=== PATIENT | male | born 1970 | race Caucasian/White ===

== ENCOUNTER → 2017-04-21 | Outpatient (CLI) | payer OTHER ==
[~2017-04-21] MED LIST: ATV/1 PO; CEPH500C2 PO; CHOL1000 PO; CLR10 PO; CYM/30 PO; DICY10CA55 PO; FERR18TA2 PO; FOLI1TAB8 PO; GABA-113 PO; GABA600T PO; LCTL45 PO; OXYC1TAB PO; PANT40TA PO; PRAM0.129 PO; SUCR5SUS PO; TEMA30CA4 PO
--- NOTE | 2017-04-23 07:16 | CODING QUERY NO DIAGNOSIS ---
TREATMENT RENDERED WITHOUT A DIAGNOSIS To promote full compliance with coding requirements relating to patient care, physician participation is requested in all cases of braille coder uncertainty. Please assist us with providing a diagnosis/symptom for the test(s) below: A diagnosis/symptom was not documented on your Order. A valid diagnosis/symptom is required to bill all insurances. Please remember that we are unable to code a diagnosis of rule out, probable, possible, questionable, or suspected. Tests that require a diagnosis: DOS 04/21 * AERO/ANAE Culture & GS DIAGNOSIS: Provider Signature: Date: Thank you Emily Escamilla Health Information Management Once completed, please kindly fax back to [phone] For questions please call [phone]
== END | disposition home or self-care (01) ==
LOC: C.LABSPEC 17:28
PROVIDERS: ATTEND Orthopaedic Surgery
DX: L03.113 Cellulitis of right upper limb (principal)

== ENCOUNTER 2017-04-22 15:50 | Inpatient (IN) | payer OTHER ==
[~2017-04-22] VITALS: Ht 170.2 cm; Wt 101.4 kg
[2017-04-22 16:30] VITALS: BP 144/85; PULSE 79; TEMP 37.2; O2SAT 99; Ht 170.2 cm; Wt 101.4 kg
[2017-04-22] MEDS ORDERED: PRAM0.129 PO (17:20)
[2017-04-22] MEDS ORDERED: SUCR5SUS PO (17:20)
--- NOTE | 2017-04-22 17:20 | History and Physical ---
History & Physical Date Apr 22, 2017. Chief Complaint right elbow erythema History of Present Illness The patient is a 47 year old male with complaints of right elbow increased pain and erythema. Patient had right elbow cubital tunnel release on 04/07/17 and came to office this past wednesday with complaints of elbow incision "popping" open that am. He had I &D wound dehiscence on 04/21/17 and presented to office today with increased pain and erythema Past Medical/Surgical History GERD Alcoholism, history of Anemia Arthritis Depression Hypoglycemia Migraines Obesity Oral cancer seizure disorder sleep apnea spinal stenosis Jaw surgery Right shoulder arthroscopy Gastric bypass Partial liver removed Cholecystectomy right Achilles Repair CTR Cubital tunnel release Allergies Coded Allergies: Penicillins (Verified Allergy, Mild, skin rash as child, 04/22/17) Amitriptyline (Verified Allergy, "medicine induced blackout", 04/22/17) Lyrica (Verified Allergy, loss of balance, dizzy, light headed, 04/22/17) Nitroglycerin (Verified Allergy, "stops heart", 04/22/17) Wellbutrin (Verified Allergy, hallucinations, 04/22/17) Zonegran (Verified Allergy, hallucinations, 04/22/17) Physical Examination Respiratory/Chest: lungs clear Cardiovascular: regular rate, rhythm Extremities: + pertinent finding (right elbow erythema and closed incision with sligher serous drainage) Diagnosis Right elbow cellulitis s/p right elbow cubital tunnel release and CTR s/p right elbow I & D wound dehiscence on 04/21/17 Plan of Treatment Patient admitted to [facility] today for IV abx. Cultures were taken yesterday in the OR and are pending. Consult Medicine and ID.
[2017-04-22] MEDS ORDERED: CYM/30 PO ×2 (17:22→17:38)
[2017-04-22] MEDS ORDERED: CLR10 PO (17:23)
[2017-04-22] MEDS ORDERED: PANT40TA PO ×2 (17:23→17:37)
[2017-04-22] MEDS ORDERED: GABA-113 PO ×2 (17:24→18:03)
[2017-04-22] MEDS ORDERED: ATV/1 PO ×2 (17:25→18:04)
[2017-04-22] MEDS ORDERED: OXYC1TAB PO (17:26)
[2017-04-22] MEDS ORDERED: TEMA30CA4 PO (17:26)
[2017-04-22] MEDS ORDERED: DICY10CA55 PO (17:26)
[2017-04-22] MEDS ORDERED: FOLI1TAB8 PO (17:27)
[2017-04-22] MEDS ORDERED: FERR18TA2 PO (17:28)
[2017-04-22] MEDS ORDERED: CHOL1000 PO (17:29)
[2017-04-22] MEDS: OXYCODONE HCL IR 5 MG TAB (IMMEDIATE RELEASE) PO SCH (18:10)
[2017-04-22] MEDS ORDERED: PIPERACILL/TAZOBAC IV 3.375 GM in DEXTROSE 5% 100ML IV ONE (18:15)
[2017-04-22] MEDS ORDERED: PIPERACILL/TAZOBAC CONSULT ACTIVE PRN (18:15)
[2017-04-22 19:12] LABS: CREATININE 0.82 mg/dl (0.60-1.40)
[2017-04-22] MEDS ORDERED: LORAZEPAM 1 MG TAB PO PRN (19:45)
[2017-04-22] MEDS ORDERED: ONDANSETRON INJ 2 MG/ML 2 ML VIAL IV PRN (19:45)
[2017-04-22] MEDS ORDERED: VANCOMYCIN CONSULT ACTIVE PRN (19:45)
[2017-04-22] MEDS ORDERED: VANCOMYCIN INJ 2,250 MG in SODIUM CHLORIDE 0.9% 500ML 500 ML IV ONE (20:15)
[2017-04-22] MEDS: HYDROmorphone INJ 1 MG/ML SYR IV PRN (20:49)
[2017-04-22] MEDS: PANTOprazole SOD 40 MG TAB PO SCH (20:50)
[2017-04-22] MEDS: GABAPENTIN 300 MG CAP PO SCH (20:50)
[2017-04-22] MEDS: DULOXETINE HCL 60 MG CAP PO SCH (20:50)
[2017-04-22] MEDS: TEMAZEPAM 15 MG CAP PO SCH (20:51)
--- NOTE | 2017-04-22 21:10 | Pharmacy Progress Note ---
Pharmacy Antibiotic Consult Date of Service: Apr 22, 2017. Pharmacy Dosing Scope Pharmacy is consulted to initiate vancomycin/zosyn IV dosing therapy, order appropriate labs and adjust drug dose/frequency. Subjective The patient is a 47 year old male admitted on Apr 22, 2017 at 16:20. Objective Height (Feet): 5 Height (Inches): 7.00 Weight (Kilograms): 96.360 Lab Results (24hrs): Test 04/22/17 18:27 Creatinine 0.82 mg/dl (0.60-1.40) Est Creatinine Clear Calc Drug Dose 120.6 ml/min Estimated GFR () 120.3 Estimated GFR (Non- 103.8 Assessment & Plan Assessment: * 47 yo male w/ increased right elbow pain and erythema * Right elbow cubital tunnel release on 04/07/17 and then I&D wound dehiscence on 04/21/17 * Consulted to start IV vanco/zosyn Plan: Loading dose: 2250 mg (23mg/kg) IV X 1 dose then: 1250 mg (13mg/kg) mg IV every 10 hours. * population pk: SCr 0.82, CrCl age maximum 106 ml/min, Ke 0.09, T1/2 ~7.5 hrs Goal trough level estimate: between 10-20 mcg/mL. Trough level ordered for 04/24 @ 0930 Pharmacy will continue to follow and will adjust dose/frequency as necessary. Thank you
[2017-04-22 22:58] VITALS: BP 150/92; PULSE 76; TEMP 37.6; O2SAT 99
--- NOTE | 2017-04-22 23:11 | Medical Consult ---
Consultation Date of Consultation: Apr 22, 2017. Attending Physician: José Miguel Pedroza MD Reason for Consultation: Cellulitis History of Present Illness The patient is a 47 year old male with complaints of right elbow increased pain and erythema. Patient had right elbow cubital tunnel release on 04/07/17. He was doing well until he was getting out of bed on 04/19 when he felt his wound "pop." There was some purulent drainage and he presented to the office for evaluation. On 04/21/17 he underwent an I&D of the right elbow and the wound was closed, no drain placed. This AM he had intense pain, fever/chills and his elbow was significantly swollen, twice the size it had been before. He was directly admitted by orthopedics and given Zosyn, we are consulted for medical management. Per the patient and his family member, the erythema surrounding the right elbow has increased significantly since just this evening. The swelling is rapidly increasing and the elbow is exquisitely tender. The oxycodone that he was prescribed are not touching the pain. He has not slept well in days. His appetite is poor. He had some nausea and vomiting earlier this evening. H/o alcohol abuse, he was sober for 3 years until March 2017 when he relapsed , but he has not had a drink in several weeks now. His other chronic issues are stable. Past Medical/Surgical History Past Medical/Surgical History GERD Alcoholism, history of Anemia Arthritis Depression Hypoglycemia Migraines Obesity Oral cancer seizure disorder sleep apnea spinal stenosis Jaw surgery Right shoulder arthroscopy Gastric bypass Partial liver removed Cholecystectomy right Achilles Repair CTR Cubital tunnel release Family History Alcoholism CAD Social History Smoking Status: Current Every Day Smoker Allergies Coded Allergies: Bupropion (Verified Allergy, Unknown, hallucinations, 04/22/17) Pregabalin (Verified Allergy, Unknown, loss of balance, dizzy, light headed, 04/22/17) Zonisamide (Verified Allergy, Unknown, hallucinations, 04/22/17) Adhesives (Unverified Adverse Reaction, Unknown, RASH, 04/22/17) all transdermal patches Amitriptyline (Unverified Adverse Reaction, Unknown, DELIRIUM, 04/22/17) medicine induced blackout Aspirin (Unverified Adverse Reaction, Unknown, GI SYMPTOMS, 04/22/17) gastric bypass patient NSAIDs (Unverified Adverse Reaction, Unknown, GI SYMPTOMS, 04/22/17) gastric bypass patient Nitroglycerin (Unverified Adverse Reaction, Unknown, SHORTNESS OF BREATH, 04/22/17) stops heart Penicillins (Unverified Adverse Reaction, Unknown, GI SYMPTOMS, 04/22/17) pt was told since not to use Home Medications Cymbalta Vitamin D Folic acid Restoril Ativan Mirapex Neurontin Oxycodone 30mg QID Protonix 40mg BID Iron supplement Current Inpatient Medications Current Inpatient Medications Medications (Trade) Dose Ordered Sig/Re Route Start Time Stop Time Status Last Admin Dose Admin Oxycodone HCl (Roxicodone Immediate Rel Tab) 20 mg Q6H PO 04/22/17 18:00 05/06/17 17:59 04/22/17 18:10 20 MG Piperacillin Sod/ Tazobactam Sod 3.375 gm/Dextrose 115 ml @ 28.75 mls/ hr Q8H IV 04/23/17 00:00 05/03/17 00:00 Miscellaneous Information (Consult) 1 ea UD PRN N/A 04/22/17 18:15 05/22/17 18:14 Duloxetine HCl (Cymbalta Cap) 60 mg BID PO 04/22/17 21:00 05/22/17 20:59 04/22/17 20:50 60 MG Folic Acid (Folvite Tab) 1 mg DAILY PO 04/23/17 09:00 05/23/17 08:59 Gabapentin (Neurontin Cap) 600 mg BID PO 04/22/17 21:00 05/22/17 20:59 04/22/17 20:50 600 MG Loratadine (Claritin Tab) 10 mg DAILY PO 04/23/17 09:00 05/23/17 08:59 Lorazepam (Ativan Tab) 1 mg DAILY PRN PO 04/22/17 19:45 05/22/17 19:44 Pantoprazole Sodium (Protonix Tab) 40 mg BID PO 04/22/17 21:00 05/22/17 20:59 04/22/17 20:50 40 MG Pramipexole Dihydrochloride (miraPEX TAB) 0.5 mg DAILY PO 04/23/17 09:00 05/23/17 08:59 Temazepam (Restoril Cap) 30 mg HS PO 04/22/17 21:00 05/22/17 20:59 04/22/17 20:51 30 MG Hydromorphone HCl (Dilaudid Inj) 1 mg Q4H PRN IV 04/22/17 19:45 05/06/17 19:44 04/22/17 20:49 1 MG Ondansetron HCl (Zofran Inj) 4 mg Q4H PRN IV 04/22/17 19:45 05/22/17 19:44 Vancomycin HCl 1250 mg/Sodium Chloride 275 ml @ 125 mls/hr Q10H IV 04/23/17 05:00 05/03/17 04:59 Miscellaneous Information (Consult) 1 ea UD PRN N/A 04/22/17 19:45 05/22/17 19:44 Vancomycin HCl 2250 mg/Sodium Chloride 545 ml @ 200 mls/hr NOW ONCE IV 04/22/17 20:15 04/22/17 22:58 04/22/17 20:49 200 MLS/HR Review of Systems Constitutional: + fever, + chills, No weight loss, No weakness, No fatigue Eyes: No worsening of vision, No eye pain, No redness, No discharge, No diplopia, No problem reported ENT: No hearing loss, No unusual epistaxis, No nasal symptoms, No sore throat, No tinnitus, No dental problems, No trouble swallowing, No problem reported Respiratory: No cough, No sputum, No wheezing, No shortness of breath, No dyspnea on exertion, No dyspnea at rest, No hemoptysis, No problem reported Cardiovascular: No chest pain, No orthopnea, No PND, No edema, No claudication , No palpitations, No problem reported Abdomen: No pain, No nausea, No vomiting, No diarrhea, No constipation, No GI bleeding, No problem reported Musculoskeletal: + joint pain (right elbow), + swelling (right elbow), No muscle pain, No calf pain Genitourinary - Male: No hematuria, No dysuria, No urinary frequency, No urinary urgency Neurologic: No memory loss, No paralysis, No weakness, No numbness/tingling, No vertigo, No balance problems, No problem reported Psychiatric: + anxiety, + insomnia, + substance abuse (h/o alcohol abuse, last drink one month ago), No depression symptoms, No anhedonism Endocrine: No fatigue, No excessive thirst, No excessive urination, No problem reported Hematologic / Lymphatic: No abnormal bleeding/bruising, No clotting problems, No swollen lymph nodes, No night sweats, No problem reported Integumentary: + color change (erythema around right elbow extending both proximally and distally several centimeters), No rash, No itch, No new/changing skin lesions, No bleeding, No problem reported Allergic / Immunologic: No environmental allergies, No seasonal allergies, No pet sensitivities, No food allergies, No hives, No frequent infections, No poor healing, No prolonged convalescence, No problem reported Physical Exam Date Time Temp Pulse Resp B/P (MAP) Pulse Ox O2 Delivery O2 Flow Rate FiO2 04/22/17 16:30 37.2 79 15 144/85 99 Room Air General Appearance: WD/WN, no apparent distress Head: normocephalic, atraumatic Eyes: normal inspection, EOMI, sclerae normal ENT: normal ENT inspection, hearing grossly normal, pharynx normal Neck: supple, no adenopathy, no JVD Respiratory/Chest: chest non-tender, lungs clear, normal breath sounds, no respiratory distress, no accessory muscle use Cardiovascular: regular rate, rhythm, no edema, no gallop, no JVD, no murmur, normal peripheral pulses Abdomen/GI: normal bowel sounds, non tender, soft, no organomegaly Back: normal inspection, no CVA tenderness, no muscle spasm, normal range of motion Extremities/Musculoskelatal: normal capillary refill, no pedal edema, pelvis stable, + inflammation (right elbow), + swelling (right elbow, significant, impeding full flexion, tender to palpation) Neurologic/Psych: leaf tier II-XII nml as tested, no motor/sensory deficits, alert, normal mood/affect, normal reflexes, oriented x 3 Skin: + pertinent finding (right elbow erythema) Lymphatic: no adenopathy Laboratory Results Last 24 Hours Test 04/22/17 18:27 Creatinine 0.82 mg/dl Est Creatinine Clear Calc Drug Dose 120.6 ml/min Estimated GFR () 120.3 Estimated GFR (Non- 103.8 Assessment & Plan 47 yo male with right elbow cellulitis, complication of recent cubital tunnel release on 04/07 with subsequent wound dehiscence - Right elbow cellulitis, possible septic arthritis s/p I&D on 1/17, initial cultures with staph aureus will treat with Zosyn and Vancomycin, await final culture results and sensitivity consult ID for recommendations check CBC in the AM Oxycodone for pain with Dilaudid for breakthrough if needed GERD, Depression/Anxiety, insomnia, Migraine headaches: chronic and stable, continue chronic medications h/o alcohol abuse: last drink was a month ago, no risk for withdrawal DVT prophylaxis: per ortho service check labs in the AM Additional Copies To Wong Herbert D.O.; José Miguel Pedroza MD
[2017-04-23] MEDS: PIPERACILL/TAZOBAC IV 3.375 GM in DEXTROSE 5% 100ML IV SCH ×3 (00:43→17:02)
[2017-04-23 03:41] VITALS: BP 123/69; PULSE 73; TEMP 36.5; O2SAT 94
[2017-04-23] MEDS: HYDROmorphone INJ 1 MG/ML SYR IV PRN (03:57)
[2017-04-23] MEDS ORDERED: VANCOMYCIN INJ 1,250 MG in SODIUM CHLORIDE 0.9% 250ML 250 ML IV SCH (05:00)
[2017-04-23] MEDS: OXYCODONE HCL IR 5 MG TAB (IMMEDIATE RELEASE) PO SCH ×3 (05:39→12:00)
[2017-04-23 06:39] LABS: BASO % 0.4 %; BASO ABS # 0.02 K/uL (0-0.2); EOS % 4.4 %; EOS ABS # 0.25 K/uL (0-0.5); HEMATOCRIT 36.8 % (42-52); HEMOGLOBIN 12.6 g/dL (14.0-18.0); IG# 0.01 K/uL (0.00-0.02); LYMPH % 40.4 %; LYMPH ABS # 2.29 K/uL (1.2-3.4); MEAN CELL VOLUME 93.2 fL (80-100); MEAN CORPUSCULAR HEMOGLOBIN 31.9 pg (25-34); MEAN CORPUSCULAR HGB CONC 34.2 g/dl (32-36); MEAN PLATELET VOLUME 8.9 fL (7.4-10.4); MONO % 10.6 %; PLATELET COUNT 230 K/uL (130-400); RED CELL DISTRIBUTION WIDTH CV 13.8 % (11.5-14.5); RED CELL DISTRIBUTION WIDTH SD 46.9 fL (36.4-46.3); WHITE BLOOD COUNT 5.67 K/uL (4.8-10.8)
[2017-04-23 07:13] LABS: ALBUMIN 2.9 gm/dl (3.4-5.0); CALCIUM 8.4 mg/dl (8.5-10.1); CREATININE 0.77 mg/dl (0.60-1.40); POTASSIUM 3.8 mmol/L (3.5-5.1)
[2017-04-23 07:18] LABS: TOTAL PROTEIN 6.2 gm/dl (6.4-8.2)
[2017-04-23 07:24] VITALS: BP 133/70; PULSE 75; TEMP 36.9; O2SAT 96
[2017-04-23] MEDS: LORATADINE 10 MG TAB PO SCH (09:58)
[2017-04-23] MEDS: PRAMIPEXOLE DIHYDROCHLORIDE 0.25MG TAB PO SCH (09:58)
[2017-04-23] MEDS: DULOXETINE HCL 60 MG CAP PO SCH ×2 (09:59→20:51)
[2017-04-23] MEDS: GABAPENTIN 300 MG CAP PO SCH (10:00)
[2017-04-23] MEDS: PANTOprazole SOD 40 MG TAB PO SCH ×2 (10:00→20:51)
--- NOTE | 2017-04-23 10:30 | Progress Note ---
Progress Note Date of Service Apr 23, 2017. Progress Note ID Consult Dictated #[id number] A/P: 1. right elbow post op infection - MSSA -continue abx -check blood cultures x 2 -Await plan for drainage -Will likely require prolonged course of abx, depending on extent of infection -will follow, thank you
--- NOTE | 2017-04-23 10:51 | INFECT. DISEASE CONSULTATION ---
DATE OF CONSULTATION: 04/23/2017 REQUESTING PHYSICIAN: José Miguel Pedroza MD. HISTORY OF PRESENT ILLNESS: This is a 47-year-old gentleman who was admitted to the hospital after he had worsening right elbow pain. He reportedly had a cubital tunnel release surgery performed on the . He tolerated this well and states that he was healing well up until the when he put pressure on his elbow getting out of bed in the morning and noticed a wound dehiscence with significant purulent drainage noted. He had an already scheduled followup appointment for the and he did follow up and I&D performed at that time. Culture was obtained and this grew MSSA. He denies being on antibiotics prior to admission to the hospital. He continued to have worsening pain in the elbow and some purulent drainage that was seeping through his incision. He also noticed a worsening pain and erythema extending both distally and proximally. For this reason, he came to the Emergency Room yesterday. He did have a fever of 37.6 yesterday but has otherwise been afebrile. He was started empirically on vancomycin and Zosyn. His white blood cell count was 5.6. He currently denies any fevers but states he did have some chills overnight. He continues to complain of significant pain in the right elbow extending into the axilla and into the wrist as well. He does have full range of motion of his right arm and his fingers, but he states this is painful. He did note some drainage on his dressing overnight which was removed on my examination. There was a line drawn around the area of erythema and he states this has not spread but he does feel that the wound around the incision itself is more erythematous today. He has no chest pain, cough, shortness of breath, nausea, vomiting, diarrhea or abdominal pain. His remaining review of systems is unremarkable. He is tolerating antibiotics without difficulty. PAST MEDICAL HISTORY: Significant for GERD, alcoholism, anemia, osteoarthritis, depression, migraine headaches, obesity, oral cancer, seizure disorder, sleep apnea and spinal stenosis. PAST SURGICAL HISTORY: Significant for jaw surgery, shoulder scope, gastric bypass, partial liver removal, cholecystectomy and Achilles repair on the right. Carpal tunnel release surgery and cubital tunnel release surgery on 04/07/2017. ALLERGIES: HE HAS ALLERGIES TO PENICILLIN, AMITRIPTYLINE, LYRICA, NITROGLYCERIN, WELLBUTRIN. FAMILY HISTORY: Noncontributory. SOCIAL HISTORY: Significant for daily tobacco use as well as a history of alcohol abuse. PHYSICAL EXAMINATION: VITAL SIGNS: T-max was 37.6 overnight. His current temperature is 36.9, pulse 75, respiratory rate 18, blood pressure 133/70. Oxygen saturation is 94-99% on room air. GENERAL: He is awake, alert and oriented x3. He is in no acute distress. HEENT: Mucous membranes are moist. Extraocular muscles are intact. HEART: Regular. LUNGS: Clear bilaterally. ABDOMEN: Soft and nondistended. EXTREMITIES: There is no lower extremity edema. There is no rash. Examination of the right upper extremity reveals the incision over cubital area to be closed. I am unable to express any drainage from this. There is significant warmth and erythema extending into the axillary area and into the forearm as well. This is warm and tender to palpation. There is an area of fluctuance at the incision, but I am unable to drain any purulent drainage. MEDICATIONS: Include folic acid, Claritin, Mirapex, Zosyn, Cymbalta, Neurontin, Protonix, Restoril, Ativan, Dilaudid, and vancomycin. LABORATORY STUDIES: CBC today reveals a white blood cell count of 5.6, hemoglobin 12.6, platelets are 230. Chemistry panel reveals a sodium of 137, potassium 3.8, chloride 104, bicarbonate 31, BUN 6, creatinine 0.7, glucose is 108. LFTs are within normal limits. Albumin is low at 2.9. Culture from the 17th is growing MSSA. There is no imaging to review this admission. ASSESSMENT: Postop infection with right elbow cellulitis and likely abscess formation with previous cultures growing methicillin-susceptible Staphylococcus aureus. I will continue him on empiric antibiotics pending additional culture data. CAT scan versus an ultrasound would be recommended to evaluate for any fluid collection. Blood cultures will be obtained at this time and I will followup plan for any potential surgery. If any I&D is to be performed, additional cultures would be recommended. We will follow along with you. Thank you for this consultation.
[2017-04-23] MEDS ORDERED: NALOXONE HCL 0.4 MG/1 ML VIAL/CARP IV PRN (14:00)
[2017-04-23 14:56] VITALS: BP 143/87; PULSE 78; TEMP 36.6; O2SAT 100
[2017-04-23] MEDS ORDERED: LACTULOSE SYRUP 10 GM/15 ML BTL 473 ML PO ONE (16:00)
--- NOTE | 2017-04-23 16:52 | Orthopedic Progress Note ---
Orthopedic Progress Note Date of Service Apr 23, 2017. Subjective Additional Notes: Pt sleeping upon arrival. Able to wake him up verbally but have to speak loudly. No complaints at this time. Feels that his arm is about the same. Nursing states he was being somewhat difficult. Became very somnolent with pain meds and had to be given Narcan. Objective Right arm with swelling. Erythema over the elbow going up and down the extremity. Lines have been marked to show previous erythema which has gone down somewhat. Wound closed with scant drainage. States that he has numbness in the 4th/5th fingers. ROM intact. Cap refill less than 2 seconds. Date Time Temp Pulse Resp B/P (MAP) Pulse Ox O2 Delivery O2 Flow Rate FiO2 04/23/17 15:50 Room Air 04/23/17 14:56 36.6 78 18 143/87 (105) 100 Room Air 04/23/17 07:24 36.9 75 18 133/70 (91) 96 Room Air 04/23/17 03:41 36.5 73 18 123/69 (87) 94 Room Air 04/23/17 00:00 Room Air 04/22/17 22:58 37.6 76 15 150/92 (111) 99 Room Air Laboratory Results 24 Hours: Test 04/23/17 06:23 White Blood Count 5.67 K/uL Red Blood Count 3.95 M/uL Hemoglobin 12.6 g/dL Hematocrit 36.8 % Mean Corpuscular Volume 93.2 fL Mean Corpuscular Hemoglobin 31.9 pg Mean Corpuscular Hemoglobin Concent 34.2 g/dl Platelet Count 230 K/uL Mean Platelet Volume 8.9 fL Neutrophils (%) (Auto) 44.0 % Lymphocytes (%) (Auto) 40.4 % Monocytes (%) (Auto) 10.6 % Eosinophils (%) (Auto) 4.4 % Basophils (%) (Auto) 0.4 % Neutrophils # (Auto) 2.50 K/uL Lymphocytes # (Auto) 2.29 K/uL Monocytes # (Auto) 0.60 K/uL Eosinophils # (Auto) 0.25 K/uL Basophils # (Auto) 0.02 K/uL Assessment & Plan Assessment: Cellulitis Right Elbow s/p wound dehiscence post cubital tunnel release. Plan: Antibx as per ID Team Elevation of elbow to help with swelling watch pain management; patient on chronic Oxy IR
[2017-04-23] MEDS ORDERED: OXYCODONE HCL IR 5 MG TAB (IMMEDIATE RELEASE) PO PRN ×2 (18:00→22:30)
[2017-04-23] MEDS ORDERED: TAPENTADOL HCL 50 MG TAB PO PRN (18:15)
--- NOTE | 2017-04-23 18:45 | ORTHOPEDIC PROGRESS NOTE ---
DATE: 04/23/2017 SUBJECTIVE: I had seen the patient earlier today due to cellulitis of his right elbow, which resulted from a wound dehiscence of his previous surgical incision earlier in the week. This had been cleaned and closed by Dr. Pedroza. The patient then developed a cellulitis and Dr. Pedroza had the patient admitted for further care. The patient has a chronic narcotic use history of which he states is approximately 14 years and earlier today the patient was very somnolent and nursing was concerned about the patient's pain management with his current OxyIR 20 mg every 6 hours and also hydromorphone that was to be given for breakthrough pain. At that point, he had been given Narcan and now he was very irate about having given Narcan and stated that this was his normal state at home. I spoke to Dr. Esteban about the incident and it was decided to have pain management see the patient as well. Dr. Silverman was rounding at approximately the same time he and I sat down and discussed the patient's case. He states that he would be happy to see the patient for a formal consult and go over his pain medications and plan a regimen. At this time; however, he suggested that we start the patient on 50 mg of Nucynta to be given now and then alternate with his OxyIR, to be given 4 hours from now. Also, plans will be to increase his gabapentin from 600 mg b.i.d. to 600 mg t.i.d. until his current infection is resolving or resolved and then he can go back to his regular regimen. Again, he will be seen by Dr. Jamal christian for formal consult, and he will make any further adjustments to the patient's medications as he sees vikash. For now, although we will go with his recommendations for the above-noted changes at this point in time.
[2017-04-23 19:13] VITALS: BP 126/73; PULSE 75; TEMP 36.9; O2SAT 94
--- NOTE | 2017-04-23 19:29 | Pain Management Consultation ---
Pain Management Consultation Date of Consultation Apr 23, 2017. Reason for Consultation Recommendations for analgesics outpatient on chronic opiate therapy. Pain Location 1 - Right medial forearm edema, cellulitis and pain History Marc Jones is a 47-year-old male admitted to [facility] with cellulitis of right upper extremity. He underwent a surgical procedure of the right elbow several days ago with subsequent wound dehiscence. He underwent a second surgery and was noted to have cellulitis over the medial aspect of his right forearm. He reports experiencing postoperative pain in the distal right upper extremity. He has a history of being on chronic opiate therapy as an outpatient for back pain. While in the hospital, he received additional opioids and appeared to have excessive sedation as result of it. He was given intravenous Narcan and consultation was requested for assistance in managing his analgesic regimen. Mr. Jones reports that his pain is approximately 6/10 when severe. He reports efficacy from the oxycodone and feels that his pain is "better" since being admitted to the hospital with analgesics and antibiotic therapy. He reports that he has been on oral opioids for over 10 years duration. He has been oxycodone for the last 2-3 years and most recently has been taking 30 mg every 6 hours on a scheduled basis. He denies any side effects to his medication but does admit decreased efficacy over time. Past Medical: GERD Alcoholism, history of Anemia Arthritis Depression Hypoglycemia Migraines Obesity Oral cancer seizure disorder sleep apnea spinal stenosis Past Surgical: Jaw surgery Right shoulder arthroscopy Gastric bypass Partial liver removed Cholecystectomy right Achilles Repair CTR Cubital tunnel release Social / Work History Smoking Status: Current every day smoker Alcohol Use: heavy Marital Status: Housing Status: lives with family Occupation: unemployed Allergies Coded Allergies: Bupropion (Verified Allergy, Unknown, hallucinations, 04/22/17) Pregabalin (Verified Allergy, Unknown, loss of balance, dizzy, light headed, 04/22/17) Zonisamide (Verified Allergy, Unknown, hallucinations, 04/22/17) Adhesives (Unverified Adverse Reaction, Unknown, RASH, 04/22/17) all transdermal patches Amitriptyline (Unverified Adverse Reaction, Unknown, DELIRIUM, 04/22/17) medicine induced blackout Aspirin (Unverified Adverse Reaction, Unknown, GI SYMPTOMS, 04/22/17) gastric bypass patient NSAIDs (Unverified Adverse Reaction, Unknown, GI SYMPTOMS, 04/22/17) gastric bypass patient Nitroglycerin (Unverified Adverse Reaction, Unknown, SHORTNESS OF BREATH, 04/22/17) stops heart Penicillins (Unverified Adverse Reaction, Unknown, GI SYMPTOMS, 04/22/17) pt was told since not to use Medications Current Inpatient Medications Medications (Trade) Dose Ordered Sig/Re Route Start Time Stop Time Status Last Admin Dose Admin Piperacillin Sod/ Tazobactam Sod 3.375 gm/Dextrose 115 ml @ 28.75 mls/ hr Q8H IV 04/23/17 00:00 05/03/17 00:00 04/23/17 17:02 28.75 MLS/HR Miscellaneous Information (Consult) 1 ea UD PRN N/A 04/22/17 18:15 05/22/17 18:14 Duloxetine HCl (Cymbalta Cap) 60 mg BID PO 04/22/17 21:00 05/22/17 20:59 04/23/17 09:59 60 MG Folic Acid (Folvite Tab) 1 mg DAILY PO 04/23/17 09:00 05/23/17 08:59 04/23/17 09:58 1 MG Loratadine (Claritin Tab) 10 mg DAILY PO 04/23/17 09:00 05/23/17 08:59 04/23/17 09:58 10 MG Lorazepam (Ativan Tab) 1 mg DAILY PRN PO 04/22/17 19:45 05/22/17 19:44 04/23/17 07:58 1 MG Pantoprazole Sodium (Protonix Tab) 40 mg BID PO 04/22/17 21:00 05/22/17 20:59 04/23/17 10:00 40 MG Pramipexole Dihydrochloride (miraPEX TAB) 0.5 mg DAILY PO 04/23/17 09:00 05/23/17 08:59 04/23/17 09:58 0.5 MG Temazepam (Restoril Cap) 30 mg HS PO 04/22/17 21:00 05/22/17 20:59 04/22/17 20:51 30 MG Ondansetron HCl (Zofran Inj) 4 mg Q4H PRN IV 04/22/17 19:45 05/22/17 19:44 Naloxone HCl (Narcan Inj) 0.4 mg ONE PRN IV 04/23/17 14:00 05/23/17 13:59 04/23/17 14:51 0.4 MG Lactulose (Chronulac Syrup) 15 gm DAILY PO 04/24/17 09:00 05/24/17 08:59 Cyanocobalamin (Vitamin B-12 Tab) 1,000 mcg QAM PO 04/24/17 09:00 05/24/17 08:59 Gabapentin (Neurontin Tab) 600 mg TID PO 04/23/17 21:00 05/22/17 20:59 Tapentadol (Nucynta Tab) 50 mg Q4H PRN PO 04/23/17 18:15 05/23/17 18:14 Oxycodone HCl (Roxicodone Immediate Rel Tab) 20 mg Q4HWA PRN PO 04/23/17 22:30 05/07/17 22:29 Review of Systems Denies any recent history of fever, night sweats, unexplained weight loss, or constitutional symptoms. Otherwise, 8 point review of system has been reported to be negative. Physical Exam Height & Weight: Height 5 feet, 7.00 inches. Weight 96.360 (Kilograms) 212 (Pounds) Last Vital Signs Documentation Date Time Temp Pulse Resp B/P (MAP) Pulse Ox O2 Delivery O2 Flow Rate FiO2 04/23/17 19:13 36.9 75 18 126/73 (90) 94 Room Air Exam: Mr. Jones appears his stated age of 47. He is moderately deconditioned and laying in a supine position bed and appears comfortable. He is awake and alert but at times is slow to respond to questions. Focused examination of his right upper extremity demonstrates edema in the medial forearm with erythema over the area. Skin appears warm to touch and there is generalized diffuse tenderness to palpation. He has a recent scar over the medial elbow region. Laboratory Laboratory Results (Last CBC): 04/23/17 06:23 Red Blood Count 3.95 L, Mean Corpuscular Volume 93.2, Mean Corpuscular Hemoglobin 31.9, Mean Corpuscular Hemoglobin Concent 34.2, Mean Platelet Volume 8.9, Neutrophils (%) (Auto) 44.0, Lymphocytes (%) (Auto) 40.4, Monocytes (%) ( Auto) 10.6, Eosinophils (%) (Auto) 4.4, Basophils (%) (Auto) 0.4, Neutrophils # (Auto) 2.50, Lymphocytes # (Auto) 2.29, Monocytes # (Auto) 0.60 H, Eosinophils # (Auto) 0.25, Basophils # (Auto) 0.02 [place] Drug Monitoring Program Search Results: patient reviewed within database Drug Monitoring Findings: Demonstrates chronic use of opioids, benzodiazepines and anxiolytic. Opioid Risk Assessment Risk assessment performed, moderate risk identified Assessment 1. Status post right upper extremity surgery with acute postop pain. 2. Chronic opioid use. 3. Cellulitis right distal upper extremity. 4. Multiple comorbid medical conditions including history of seizures and alcohol misuse. 5. Chronic opioid dependence. Recommendations 1. Recommend increasing the oxycodone to 30 mg every 6 hours when necessary and low dose IV hydromorphone for breakthrough pain. 2. Recommend increasing gabapentin to 600 mg by mouth 3 times a day.
[2017-04-23 20:30] VITALS: O2SAT 94
[2017-04-23] MEDS: OXYCODONE HCL IR 5 MG TAB (IMMEDIATE RELEASE) PO PRN (20:51)
[2017-04-23] MEDS: GABAPENTIN 600 MG TAB PO SCH (20:51)
[2017-04-23] MEDS: TEMAZEPAM 15 MG CAP PO SCH (20:51)
--- NOTE | 2017-04-23 21:01 | Progress Note ---
Subjective Date of Service: Apr 23, 2017. Subjective Pt evaluation today including: conversation w/ patient, physical exam, chart review, lab review, review of studies, conversation w/ law firm consultant (orthopedics) , review of inpatient medication list Pain: right elbow; also reports chronic low back pain PO Intake: no issues Voiding: no voiding problems nursing staff called me today concerned about pt's mentation they reported he was frequently falling asleep mid-sentence during conversations , during meals, etc upon my arrival he was sitting on the side of his bed eating lunch multiple times he fell asleep sitting up straight when I woke him up he was oriented x 3 and could provide full history he was not anxious, agitated, or showing signs of etoh withdrawal patient reported "I always fall asleep like this" but he later changed this statement, stating it only happened "maybe once every couple of weeks" he also reported CAT, but states he does not use CPAP or oxygen at HS lastly, with respect to his low back pain, he reports being on oxycodone 20mg QID for several years and mentioned his provider in [place] Review of Systems Constitutional: No fever Respiratory: No shortness of breath Cardiac: No chest pain Abdomen: No pain Musculoskeletal: + joint pain (right elbow ) Objective Vital Signs Date Time Temp Pulse Resp B/P (MAP) Pulse Ox O2 Delivery O2 Flow Rate FiO2 04/23/17 19:13 36.9 75 18 126/73 (90) 94 Room Air 04/23/17 15:50 Room Air 04/23/17 14:56 36.6 78 18 143/87 (105) 100 Room Air 04/23/17 07:45 Room Air 04/23/17 07:24 36.9 75 18 133/70 (91) 96 Room Air 04/23/17 03:41 36.5 73 18 123/69 (87) 94 Room Air 04/23/17 00:00 Room Air 04/22/17 22:58 37.6 76 15 150/92 (111) 99 Room Air Physical Exam General Appearance: no apparent distress, + pertinent finding (but falling asleep multiple times during the visit ) ENT: pharynx normal Neck: no JVD Respiratory/Chest: lungs clear, no respiratory distress, no accessory muscle use Cardiovascular: regular rate, rhythm, no gallop, no murmur Abdomen: normal bowel sounds, non tender, soft, no organomegaly Extremities: + pedal edema (trace b/l ) Neurologic/Psychiatric: + pertinent finding (intermittently falling asleep; no tremors or agitation; strength 5/5 x 4 extremities; no facial droop ) Skin: + pertinent finding (right elbow region - diffuse erythema on medial aspect of volar surface of forearm/elbow region; erythema extends to the dorsal surface as well; elbow joint with diffuse swelling) Laboratory Results Last 24 Hours Test 04/23/17 06:23 04/23/17 14:15 04/23/17 14:19 White Blood Count 5.67 K/uL Red Blood Count 3.95 M/uL Hemoglobin 12.6 g/dL Hematocrit 36.8 % Mean Corpuscular Volume 93.2 fL Mean Corpuscular Hemoglobin 31.9 pg Mean Corpuscular Hemoglobin Concent 34.2 g/dl Platelet Count 230 K/uL Mean Platelet Volume 8.9 fL Neutrophils (%) (Auto) 44.0 % Lymphocytes (%) (Auto) 40.4 % Monocytes (%) (Auto) 10.6 % Eosinophils (%) (Auto) 4.4 % Basophils (%) (Auto) 0.4 % Neutrophils # (Auto) 2.50 K/uL Lymphocytes # (Auto) 2.29 K/uL Monocytes # (Auto) 0.60 K/uL Eosinophils # (Auto) 0.25 K/uL Basophils # (Auto) 0.02 K/uL RDW Standard Deviation 46.9 fL RDW Coefficient of Variation 13.8 % Immature Granulocyte % (Auto) 0.2 % Immature Granulocyte # (Auto) 0.01 K/uL Sodium Level 137 mmol/L Potassium Level 3.8 mmol/L Chloride Level 104 mmol/L Carbon Dioxide Level 31 mmol/L Anion Gap 2.0 mmol/L Blood Urea Nitrogen 6 mg/dl Creatinine 0.77 mg/dl Est Creatinine Clear Calc Drug Dose 128.4 ml/min Estimated GFR () 123.5 Estimated GFR (Non- 106.6 BUN/Creatinine Ratio 7.5 Random Glucose 108 mg/dl Calcium Level 8.4 mg/dl Magnesium Level 2.2 mg/dl Total Bilirubin 0.7 mg/dl Direct Bilirubin 0.2 mg/dl Aspartate Amino Transf (AST/SGOT) 11 U/L Alanine Aminotransferase (ALT/SGPT) 15 U/L Alkaline Phosphatase 86 U/L Total Protein 6.2 gm/dl Albumin 2.9 gm/dl Urine Opiates Screen POS Urine Methadone, Qualitative NEG Urine Barbiturates NEG Urine Phencyclidine (PCP) Level NEG Ur Amphetamine/Methamphetamine NEG MDMA (Ecstasy) Screen NEG Urine Benzodiazepines Screen NEG Urine Cocaine Metabolite NEG Urine Marijuana (THC) NEG Venous Blood pH 7.38 Venous Blood Partial Pressure CO2 50 mmHg Venous Blood Partial Pressure O2 51 mmHg Venous Blood HCO3 29 mmol/L Venous Blood Oxygen Saturation 84.1 % Venous Blood Base Excess 3.0 mEq/L Ammonia 37.0 umol/L Vitamin B12 Level 300 pg/mL Assessment and Plan 47yo male - 1. encephalopathy - suspect toxic from narcotics. Checked VBG, ammonia, and tox screen. VBG with compensated chronic-appearing resp acidosis. Ammonia slightly elevated but I don't suspect this is the cause of his symptoms. I cannot rule out some element of encephalopathy from metabolic causes ( infection). I instructed the staff that if sleepiness got worse to administer narcan for suspected narcotic toxicity. Narcan was indeed given with improvement in sleepiness. Following the narcan I spoke with staff and recommended that he be monitored on telemetry due to this issue. I reviewed [place] on-line and it appears that he does receive 120 tabs of oxycodone 20mg. There have been several other prescriptions for hydrocodone over the last few months as well. He does receive ativan regularly as well. I cannot rule out that patient is taking his own supply of oxycodone while hospitalized (in addition to that which is already ordered for him through our pharmacy). Staff have not witnessed him taking his own meds, however. 2. right elbow cellulitis/abscess - 2nd to [facility]; on zosyn; rutho has been d/c. ID and ortho managing. 3. acute right elbow pain in setting of chronic pain syndrome - in light of #1 I recommended d/c of dilaudid and use of oxycodone PRN until mentation is fully back to baseline. Ortho has requested pain management consult which is very appropriate. 4. h/o CAT - not being treated; outpatient f/u recommended. 5. h/o seizure d/o - I do not believe the sleepiness is due to such. Is he on gabapentin for seizures? 6. h/o alcohol abuse - no signs of etoh withdrawal at this time. Pt to be transferred to telemetry for more careful monitoring. Will continue to follow. Continued [facility] stay due to: inadequate oral pain control, multiple IV medications needed
[2017-04-23 23:00] VITALS: BP 123/82; PULSE 60; TEMP 36.4; O2SAT 98
[2017-04-24 00:05] VITALS: O2SAT 98
[2017-04-24] MEDS: PIPERACILL/TAZOBAC IV 3.375 GM in DEXTROSE 5% 100ML IV SCH ×2 (01:07→08:23)
[2017-04-24 03:52] VITALS: BP 113/70; PULSE 65; TEMP 36.6; O2SAT 98
[2017-04-24] MEDS: OXYCODONE HCL IR 5 MG TAB (IMMEDIATE RELEASE) PO PRN ×2 (05:36→10:53)
[2017-04-24 07:10] LABS: HEMATOCRIT 35.1 % (42-52); HEMOGLOBIN 11.7 g/dL (14.0-18.0); MEAN CELL VOLUME 93.4 fL (80-100); MEAN CORPUSCULAR HEMOGLOBIN 31.1 pg (25-34); MEAN CORPUSCULAR HGB CONC 33.3 g/dl (32-36); PLATELET COUNT 220 K/uL (130-400); RED CELL DISTRIBUTION WIDTH CV 13.8 % (11.5-14.5); RED CELL DISTRIBUTION WIDTH SD 47.4 fL (36.4-46.3)
[2017-04-24 07:44] LABS: CALCIUM 8.4 mg/dl (8.5-10.1); CREATININE 0.77 mg/dl (0.60-1.40); POTASSIUM 3.7 mmol/L (3.5-5.1)
[2017-04-24 08:00] VITALS: O2SAT 98
[2017-04-24] MEDS: GABAPENTIN 600 MG TAB PO SCH (08:23)
[2017-04-24] MEDS: PANTOprazole SOD 40 MG TAB PO SCH (08:23)
[2017-04-24] MEDS: LORATADINE 10 MG TAB PO SCH (08:24)
[2017-04-24] MEDS: PRAMIPEXOLE DIHYDROCHLORIDE 0.25MG TAB PO SCH (08:24)
[2017-04-24] MEDS: DULOXETINE HCL 60 MG CAP PO SCH (08:25)
[2017-04-24 08:36] VITALS: BP 110/74; PULSE 69; TEMP 36.8; O2SAT 98
[2017-04-24] MEDS ORDERED: CYANOCOBALAMIN 500 MCG TAB (VIT B-12) PO SCH (09:00)
[2017-04-24] MEDS ORDERED: LACTULOSE SYRUP 10 GM/15 ML BTL 473 ML PO SCH (09:00)
[2017-04-24] MEDS ORDERED: GABA600T PO (09:33)
[2017-04-24] MEDS ORDERED: LCTL45 PO (09:33)
[2017-04-24] MEDS ORDERED: CEPH500C2 PO (09:37)
--- NOTE | 2017-04-24 09:39 | Discharge Instructions ---
Discharge Instructions Date of Service Apr 24, 2017. Admission Reason for Admission: Right Elbow Cellulitis Discharge Discharge Diagnosis / Problem: right elbow cellulitis Discharge Goals Goal(s): Learn about illness, Diagnostic testing, Therapeutic intervention Activity Recommendations Activity Limitations: per Instructions/Follow-up section (please follow any instructions from orthopedics) . Instructions / Follow-Up Instructions / Follow-Up 1. Per our statuary painter please do the following - 1. continue your oxycodone every 6 hours as needed 2. INCREASE your gabapentin to 600mg THREE TIMES A DAY; a new 14-day supply of this dose has been prescribed; additional refills should be obtained from your family doctor 2. Falling asleep easily - I believe this is due to medications (pain medication, etc). SLEEP APNEA could also be contributing to this. However, your ammonia level was mildly elevated. This, too, can contribute to sleepiness. The treatment of elevated ammonia is LACTULOSE. Please take lactulose 15 grams once daily. This will keep the ammonia levels down and also prevent/treat constipation. Biggest side effect is gassiness. New prescription provided. PLEASE HAVE YOUR PRIMARY CARE DOCTOR SEARCH FOR ANY LIVER TROUBLES LIVER DISEASE IS THE MOST COMMON CAUSE OF ELEVATED AMMONIA LEVEL. SOMETIMES CERTAIN MEDICATIONS CAN MAKE YOUR AMMONIA LEVEL RISE WELL. YOUR AMMONIA LEVEL ON 04/23/17 WAS 37, IMPROVING TO 32 ON 04/24/17. NORMAL IS < 30. Lastly, please get a referral to a sleep specialist for a sleep study to rule out CAT (obstructive sleep apnea) / severe snoring. 3. B12 supplementation - * your vitamin B12 level was only 300 * this is nearing the deficient range * I understand you take B12 shots once a month but you may need to give yourself weekly shots for 4-6 weeks, then resume monthly thereafter * please discuss this with your family doctor Current Hospital Diet Patient's current hospital diet: Regular Diet Discharge Diet Recommended Diet: Regular Diet Pending Studies Studies pending at discharge: no Medical Emergencies . Who to Call and When: Medical Emergencies: If at any time you feel your situation is an emergency, please call 911 immediately. . Non-Emergent Contact Non-Emergency issues call your: Primary Care Provider, Surgeon (orthopedics) Call Non-Emergent contact if: temperature is above 100.5, your pain is not controlled, your pain is worsening, your pain is unusual for you, your pain is concerning you, wound has increased drainage, wound has increased redness, wound has increased pain, you have any medication questions . . "Provider Documentation" section prepared by Ron Esteban. . VTE Core Measure Inpt VTE Proph given/why not?: [facility] [place] Drug Monitoring Program Search Results: patient reviewed within database, see additional documentation Drug Monitoring Findings: receives 120 tabs of oxycodone monthly by PCP he also receives monthly ativan he has received 2 prescriptions for hydrocodone within the last few months as well
--- NOTE | 2017-04-24 09:39 | Discharge Instructions ---
Discharge Instructions Date of Service Apr 24, 2017. Admission Reason for Admission: Right Elbow Cellulitis Discharge Discharge Diagnosis / Problem: Right elbow cellulitis Discharge Goals Goal(s): Decrease discomfort, Improve function Activity Recommendations Activity Limitations: as noted below Lifting Limitations: gradually increase as tolerated Shower/Bathe: no limitations Driving or Machine Use: no limitations . Current Hospital Diet Patient's current hospital diet: Regular Diet Discharge Diet Recommended Diet: Regular Diet Pending Studies Studies pending at discharge: no Medical Emergencies . Who to Call and When: Medical Emergencies: If at any time you feel your situation is an emergency, please call 911 immediately. . Non-Emergent Contact Non-Emergency issues call your: Surgeon Call Non-Emergent contact if: temperature is above 101.5, your pain is not controlled, wound has increased drainage, wound has increased redness . "Provider Documentation" section prepared by Theo Valle PA-C. . VTE Core Measure Inpt VTE Proph given/why not?: Melo [place], [facility] [place] Drug Monitoring Program Search Results: patient reviewed within database
--- NOTE | 2017-04-24 10:09 | PROGRESS NOTE ---
DATE: 04/24/2017 DATE: 04/24/2017 SUBJECTIVE: Marc is seen at the bedside today. He notes no new complaints. He states the elbow is feeling better and has less swelling. OBJECTIVE: RIGHT ELBOW EXAMINATION: Right elbow shows full range of motion. He has resolution of cellulitis. He has only faint erythema. He has no fluctuance or abscess. Surgical incision is well healed. No drainage. He is grossly neurovascularly intact. ASSESSMENT: Status post irrigation and debridement of wound dehiscence for right cubital tunnel surgery. PLAN: At this point in time he is significantly improved in terms of his cellulitis. Cultures showed MSSA. We will plan for discharge on a 10-day course of Keflex. He will follow up with me in the office upon discharge.
--- NOTE | 2017-04-24 10:12 | Progress Note ---
Subjective Date of Service: Apr 24, 2017. Subjective Pt evaluation today including: conversation w/ patient, physical exam, chart review, lab review, conversation w/ healthcare economics consultant (ortho) Pain: right elbow - improved PO Intake: normal Voiding: no voiding problems tele normal overnight he is very awake, alert this AM during the visit and NOT falling asleep like yesterday he was very upset about the way he felt he was being treated yesterday he felt we were judging him because of his chronic narcotic usage no issues overnight per staff does confirm he takes monthly b12 injections at home Review of Systems Respiratory: No shortness of breath Cardiac: No chest pain Abdomen: No pain Objective Vital Signs Date Time Temp Pulse Resp B/P (MAP) Pulse Ox O2 Delivery O2 Flow Rate FiO2 04/24/17 08:36 36.8 69 20 110/74 (86) 98 04/24/17 08:00 98 Room Air 04/24/17 04:15 Room Air 04/24/17 03:52 36.6 65 18 113/70 (84) 98 Room Air 04/24/17 00:05 98 Room Air 04/23/17 23:00 36.4 60 16 123/82 (96) 98 Room Air 04/23/17 20:30 94 Room Air 04/23/17 19:13 36.9 75 18 126/73 (90) 94 Room Air 04/23/17 15:50 Room Air 04/23/17 14:56 36.6 78 18 143/87 (105) 100 Room Air Physical Exam General Appearance: no apparent distress ENT: pharynx normal Neck: no JVD Respiratory/Chest: lungs clear, no respiratory distress, no accessory muscle use Cardiovascular: regular rate, rhythm, no gallop, no murmur Abdomen: normal bowel sounds, non tender, soft, no organomegaly Extremities: no pedal edema Neurologic/Psychiatric: alert, oriented x 3 Skin: + pertinent finding (cellulitis, right arm, much improved; erythema is retreating from demarkation lines; not as intensely red; patient able to actively flex/extend elbow w/o discomfort) Laboratory Results Last 24 Hours Test 04/23/17 14:15 04/23/17 14:19 04/24/17 06:57 Urine Opiates Screen POS Urine Methadone, Qualitative NEG Urine Barbiturates NEG Urine Phencyclidine (PCP) Level NEG Ur Amphetamine/Methamphetamine NEG MDMA (Ecstasy) Screen NEG Urine Benzodiazepines Screen NEG Urine Cocaine Metabolite NEG Urine Marijuana (THC) NEG Venous Blood pH 7.38 Venous Blood Partial Pressure CO2 50 mmHg Venous Blood Partial Pressure O2 51 mmHg Venous Blood HCO3 29 mmol/L Venous Blood Oxygen Saturation 84.1 % Venous Blood Base Excess 3.0 mEq/L Ammonia 37.0 umol/L 32.5 umol/L Vitamin B12 Level 300 pg/mL White Blood Count 6.30 K/uL Red Blood Count 3.76 M/uL Hemoglobin 11.7 g/dL Hematocrit 35.1 % Mean Corpuscular Volume 93.4 fL Mean Corpuscular Hemoglobin 31.1 pg Mean Corpuscular Hemoglobin Concent 33.3 g/dl RDW Standard Deviation 47.4 fL RDW Coefficient of Variation 13.8 % Platelet Count 220 K/uL Mean Platelet Volume 9.0 fL Sodium Level 137 mmol/L Potassium Level 3.7 mmol/L Chloride Level 104 mmol/L Carbon Dioxide Level 30 mmol/L Anion Gap 3.0 mmol/L Blood Urea Nitrogen 8 mg/dl Creatinine 0.77 mg/dl Est Creatinine Clear Calc Drug Dose 131.7 ml/min Estimated GFR () 123.5 Estimated GFR (Non- 106.6 BUN/Creatinine Ratio 10.2 Random Glucose 73 mg/dl Calcium Level 8.4 mg/dl Assessment and Plan 47yo male - 1. encephalopathy - suspect toxic from narcotics. s/p narcan yesterday with improvement. Resolved. I cannot rule out that mild elevation in ammonia level contributed. Suspect CAT and I have recommended an outpatient sleep study. Will Rx the ammonia as well with low-dose lactulose at home. Appreciate pain management consult. They have advised increasing gabapentin to 600mg TID. Leave oxycodone as is. 2. right elbow cellulitis/abscess - 2nd to MSSA; can d/c zosyn, change to augmentin or keflex PO - defer to ortho. IMPROVED nicely. 3. acute right elbow pain in setting of chronic pain syndrome - see #1 above. 4. h/o CAT - not being treated; outpatient f/u recommended. 5. h/o seizure d/o - I do not believe the sleepiness is due to such. Is he on gabapentin for seizures? or pain? 6. h/o alcohol abuse - again no signs of etoh withdrawal at this time. 7. gastric bypass status - with low-normal b12 level - he is already on monthly injections. suggested weekly injections for 4-6 weeks, then revert back to monthly thereafter. defer to outpatient family doc. 8. elevated ammonia level - uncertain etiology. underlying liver disease? due to medications? either way WOULD treat; advised outpatient f/u and liver w/u as well. this was written in the d/c instructions. ok from medical standpoint to d/c home today please see my d/c instructions Discharge planning: home
[2017-04-24 10:17] VITALS: BP 110/74; PULSE 69; TEMP 36.8; O2SAT 98
[2017-04-24] MEDS ORDERED: VANCOMYCIN TROUGH ONE (10:30)
== END 2017-04-24 11:15 | disposition home or self-care (01) | DRG 862 ==
LOC: C.MSW 16:20 → ENRESERV 04-23 17:17 → C.2T 04-23 18:21
PROVIDERS: ADMIT Orthopaedic Surgery; ATTEND Orthopaedic Surgery
DX: T81.4XXA Infection following a procedure, initial encounter (principal); G92 Toxic encephalopathy; L03.113 Cellulitis of right upper limb; F11.20 Opioid dependence, uncomplicated; T40.605A Adverse effect of unspecified narcotics, initial encounter; K21.9 Gastro-esophageal reflux disease without esophagitis; E66.9 Obesity, unspecified; F32.9 Major depressive disorder, single episode, unspecified; G40.909 Epilepsy, unspecified, not intractable, without status epilepticus; G47.30 Sleep apnea, unspecified; F41.9 Anxiety disorder, unspecified; B95.61 Methicillin susceptible Staphylococcus aureus infection as the cause of diseases classified elsewhere; M54.5 Low back pain; G89.29 Other chronic pain; F17.200 Nicotine dependence, unspecified, uncomplicated; Z68.35 Body mass index [BMI] 35.0-35.9, adult; Z79.899 Other long term (current) drug therapy; Z98.84 Bariatric surgery status; Z98.890 Other specified postprocedural states; Z88.0 Allergy status to penicillin; Y83.8 Other surgical procedures as the cause of abnormal reaction of the patient, or of later complication, without mention of misadventure at the time of the procedure